=== PATIENT | female | born 1945 | race Caucasian/White ===

== ENCOUNTER 2022-08-01 16:58 | Emergency (ER) | payer MEDICARE ==
[2022-08-01 17:35] LABS: #Basophils 0.1 thou/uL (0.0-0.2); #Eosinphils 0.2 thou/uL (0.0-0.7); #Monocytes 1.1 thou/uL (0.11-0.59); #Neutrophils 4.9 thou/uL (1.40-6.50); %Lymphocytes 32.7 % (21.0-51.0); %Monocytes 11.7 % (0.0-10.0); %Neutrophils 52.5 % (42.0-75.0); Hemoglobin 12.8 g/dL (12.0-16.0); Mean Corpuscular HGB CONC 33.6 g/dL (32.0-36.0); Mean Corpuscular Hemoglobin 32.6 pg (27.0-31.0); Mean Corpuscular Volume 97.1 fL (78.0-98.0); Mean Platelet Volume 7.4 fL (7.4-10.4); Platelet Count 257 thou/uL (130-400); RBC Distribution Width 11.6 % (11.5-14.5); Red Blood Cell (RBC) Count 3.93 mill/uL (4.20-5.40); White Blood Cell (WBC) Count 9.3 thou/uL (4.8-10.8)
[2022-08-01] MEDS ORDERED: Bacitracin 1 PK ONE ×2 (17:49→18:28)
[2022-08-01] MEDS ORDERED: Lidocaine 1% (PF) 30 ML VIAL ONE (17:49)
[2022-08-01 17:50] LABS: ALT (SGPT) 19 U/L (8-55); AST (SGOT) 17 U/L (5-34); Albumin 4.2 g/dL (3.4-4.8); Alkaline Phosphatase 126 U/L (40-110); Anion Gap 17 mmol/L (10-20); BUN (Urea Nitrogen) 17 mg/dL (9.8-20.1); Bilirubin, Total 0.3 mg/dL (0.2-1.2); Calc. Creatinine Clearance 0 mL/min (70-130); Calcium 9.1 mg/dL (7.8-10.44); Carbon Dioxide 23 mmol/L (23-31); Chloride 106 mmol/L (98-107); Estimated GFR 89; Globulin 2.7 g/dL (2.4-3.5); Glucose 82 mg/dL (83-110); Potassium 3.8 mmol/L (3.5-5.1); Protein, Total 6.9 g/dL (5.8-8.1); Sodium 142 mmol/L (136-145)
[2022-08-01 17:57] LABS: Bilirubin Negative (Negative); Blood, Urine Negative (Negative); Clarity Clear (Clear); Glucose, Urine (Dipstick) Negative (Negative); Ketone, Urine Negative (Negative); Leukocyte Negative (Negative); Nitrite Negative (Negative); Protein, Urine (Dipstick) Negative (Neg-Trace); Urobilinogen 0.2 mg/dL (Less than 2); pH, Urine 5.5 (5.0-9.0)
[2022-08-01 17:59] LABS: Specific Gravity, Urine 1.007 (1.002-1.036)
== END 2022-08-01 18:30 | disposition home or self-care (01) ==
LOC: NAV ERS 16:58
DX: S01.81XA Laceration without foreign body of other part of head, initial encounter (principal); S51.812A Laceration without foreign body of left forearm, initial encounter; S60.221A Contusion of right hand, initial encounter; I10 Essential (primary) hypertension; Z87.891 Personal history of nicotine dependence; W22.09XA Striking against other stationary object, initial encounter
CPT/HCPCS: 12013; 70450; 71045; 72125; 80053; 81003; 85025; J2001